=== PATIENT | female | born 1935 | race Two or more races ===

== ENCOUNTER 2025-05-01 12:15 | Outpatient (CLI) | payer BC, MEDICARE ==
--- NOTE | 2025-05-01 14:32 | RADIOLOGY REPORT ---
EXAM: DI FOOT, COMPLETE (3VW MIN) CLINICAL INDICATION: FRACTURE OF UNSPECIFIED METATARSAL TECHNIQUE: DI FOOT, COMPLETE (3VW MIN) Comparison: None FINDINGS/IMPRESSION: There is no evidence of acute fracture or dislocation. Surgical screw in the left calcaneus The alignment is anatomical. There is no radiopaque foreign body.
== END 2025-05-01 23:59 | disposition home or self-care (01) ==
LOC: RAD 12:15
PROVIDERS: ATTEND Podiatrist Foot & Ankle Surgery
DX: S92.302A Fracture of unspecified metatarsal bone(s), left foot, initial encounter for closed fracture (principal); X58.XXXA Exposure to other specified factors, initial encounter; Y93.89 Activity, other specified; Y92.89 Other specified places as the place of occurrence of the external cause; Y99.8 Other external cause status
CPT/HCPCS: 73630